=== PATIENT | female | born 1995 | race Caucasian/White ===

== ENCOUNTER 2018-06-22 10:33 | Outpatient (CLI) | payer BC, SELFPAY ==
[2018-06-22 13:14] LABS: Hemoglobin A1C 5.4 % (4.5-6.2)
[2018-06-22 13:24] LABS: BUN 11 mg/dL (7-18); CREATININE 0.79 mg/dL (0.55-1.02); Chloride 105 mmol/L (98-107); Cholesterol 210 mg/dL (50-200); Glucose 92 mg/dL (70-100); HDL Cholesterol 62 mg/dL (40-60); LDL CHOLESTEROL 139 mg/dL (<100); Potassium 4.8 mmol/L (3.5-5.1); Sodium 140 mmol/L (136-145); TSH 1.98 uIU/mL (0.358-3.74); Triglyceride 64 mg/dL (30-150)
== END 2018-06-22 10:53 ==
PROVIDERS: PCP Nurse Practitioner Family; Visit Provider Nurse Practitioner Family
DX: Z68.43 Body mass index [BMI] 50.0-59.9, adult
CPT/HCPCS: 36415; 80048; 80061; 83721; 83036; 84439; 84443

== ENCOUNTER 2018-06-22 12:35 | Outpatient (REF) | payer BC, SELFPAY ==
--- NOTE | 2018-06-22 10:30 | PAPFT_PTH ---
PATIENT: MILDRED FERNANDEZ LOC: [facility] U#:[id number] AGE/SX: 22/F ROOM: RE06/22/[address]: JOE Sage : 1995 BED: DIS: 06/22/2018 SPEC #: [id number] RECD: 06/22/18 12:54 STATUS: IAN REQ #: [id number] SALVADOR: 06/22/18 10:[address]: Joie Bolanos [facility]PT[facility] Cytology RECD BY: Gaby Rebolledo Tissues: 1 - CX/ENDOCX FOR PAP SMEARS Procedures: PAP THIN PREP/[facility] Screening HPV DNA PROBE Comments: [id number]
== END 2018-06-22 12:55 ==
LOC: LBN 12:35
PROVIDERS: PCP Nurse Practitioner Family; Visit Provider Nurse Practitioner Family
DX: Z12.4 Encounter for screening for malignant neoplasm of cervix (principal); Z11.51 Encounter for screening for human papillomavirus (HPV)
CPT/HCPCS: 88142; 87624